=== PATIENT | male | born 1975 | race Caucasian/White ===

== ENCOUNTER 2018-07-07 16:37 | Emergency (ER) | payer MEDICAID ==
[2018-07-07] MEDS ORDERED: VENLAFAXINE XR 150 MG CAP PO ONE (17:09)
--- NOTE | 2018-07-07 17:11 | EDPHY ---
H & P Stated Complaint: SI, SA (jumped in front of 2 busses) ETOH w/d, off effexor for 2 months - Personal History Current Tetanus/Diphtheria Vaccine: Yes Current Tetanus Diphtheria and Acellular Pertussis (TDAP): Yes - Medical/Surgical History Hx Asthma: No Hx Chronic Respiratory Disease: No Hx Diabetes: No Hx Cardiac Disease: No Hx Renal Disease: No Hx Cirrhosis: No Hx Alcoholism: No Hx HIV/AIDS: No Hx Splenectomy or Spleen Trauma: No Other PMH: PMHx: anxiety/depression. PSHx: appendectomy, 3 pins in L tibia, skin graft L forearm - Social History Smoking Status: Current some day smoker Alcohol Use: Sober Drug Use: None Time Seen by Provider: 07/07/18 16:59 HPI/ROS: CHIEF COMPLAINT: Suicidal ideation HISTORY OF PRESENT ILLNESS: 42-year-old male with depression presents with suicidal ideation. He has been off Effexor and Invega for 3-4 weeks. Increasing thoughts of suicide over the past 2 weeks. Increasing delusions and thoughts of suicide. He jumped in front of a bus twice today in an attempt to kill himself. No alcohol or drug use today. REVIEW OF SYSTEMS: complete 10 point ROS reviewed and is negative except for the noted elements in the HPI (Vianey Salvador) - Physical Exam Exam: General Appearance: Alert, pleasant Eyes: Pupils equal and round, no conjunctival pallor or injection ENT, Mouth: Mucous membranes moist Neck: Normal inspection Respiratory: Lungs are clear to auscultation Cardiovascular: Regular rate and rhythm Gastrointestinal: Abdomen is soft and nontender Neurological: A&O, nonfocal, normal gait Skin: Warm and dry Extremities: Normal inspection Psychiatric: Mood and affect normal (Vianey Salvador S) Constitutional: Initial Vital Signs Temperature (C) 37.1 C 07/07/18 16:50 Heart Rate 107 H 07/07/18 16:50 Respiratory Rate 16 07/07/18 16:50 Blood Pressure 131/98 H 07/07/18 16:50 O2 Sat (%) 96 07/07/18 16:50 O2 Delivery Mode Room Air Allergies/Adverse Reactions: Penicillins Allergy (Verified 11/22/16 03:13) Home Medications: Medication Instructions Recorded Effexor Xr 187.5 AC 08/19/16 GABAPENTIN 300 mg TID 08/19/16 Adderall 20 mg (*) BID 10/16/16 Medical Decision Making ED Course/Re-evaluation: 6:49 a.m.- Patient stable overnight. I discussed the case with the mental health fishing game warden who is now met with the patient. He would like to place him at [facility] where the patient has been before and is his preference to go 2. The case will be signed out to the oncoming provider Dr. Escobedo. (Areli Avalos) This pt presents with SI on an M1 hold. Medically cleared for MH eval. 11pm: signed over to Dr. Avalos at shift change. Dispo pending. Pt calm and cooperative throughout my shift. (Vianey Salvador) Other Provider: Care assumed at 7:00 a.m., previous review of the emergency department visit since bipolar disorder. Arrived with alcohol intoxication. Plan for mental health evaluation this morning. 756: The patient will be transferred to [facility] for inpatient psychiatric hospital bed not available at this facility, in stable condition; accepting physician is Dr. Massey. EMTALA form completed. (Curt Escobedo) - Data Points Laboratory Results: Laboratory Results 07/07/18 17:00 07/07/18 17:00 Medications Given: Discontinued Medications Venlafaxine HCl (Effexor Xr) 300 mg PO EDNOW ONE Stop: 07/07/18 17:10 Last Admin: 07/07/18 17:32 Dose: 300 mg Departure - Departure Disposition: Other Psych, Not [facility] Clinical Impression: Alcohol intoxication, Bipolar 1 disorder Condition: Good Instructions: Alcohol Intoxication (ED), Suicide Prevention (ED) Referrals: [facility],. [Clinic] - As per Instructions
[2018-07-07 17:18] LABS: PLATELET COUNT 224 10^3/uL (150-400)
--- NOTE | 2018-07-08 08:29 | ASMTTLCEVL ---
TLC Evaluation - Basic Information Evaluation Start Date and 07/08/2018 06:00 AM Time Hospital Status Answers: M1 Hold 72-hr M1 Hold Start Date 07/07/2018 06:10 PM and Time Patient statement Notes: Aaliyah been off my Invega Sustenna since the end of May. I was supposed to go to either [facility] or [facility] for next injection on 06/12/18 when it was due, but I didnt follow up. My last injection was on . Aaliyah also not renewed my prescription of Effexor XR for the past 2-3 weeks. I relapsed with alcohol and marijuana in the past week and been feeling depressed and having suicidal thoughts. Yesterday, I tried twice to jump out in front of a bus to try to kill myself. I want help and agree to contract for safety in a hospital setting. 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 Pal was then placed on M1 hold by ED provider which noted: Sriram jumped in front of a bus twice today in an attempt to kill himself. BAL was .123 at 1700 hrs yesterday. UDS results were positive for marijuana. Pt was cooperative, alert and oriented X 4, demonstrated insight into relationship between his being off his prescription medications, feeling more depressed with suicidal ideation, and relapsing on alcohol and marijuana about a week ago after about a year of sustained abstinence. Diagnosis History Notes: Bipolar I disorder, alcohol use disorder, severe, with recent relapse a week ago, and marijuana use disorder, severe, with recent relapse a week ago. Prior suicide attempts Notes: Pt reported one prior suicide attempt in 2004 in which he reported taking an overdose of any pills I could get my hands on, and alcohol. He reported he ended up just vomiting a lot. Prior hospitalizations Notes: Pt reported a history of numerous prior psychiatric hospitalizations. His first hospitalization was in [place] in 2002. His second was in [facility] in 2008. He was hospitalized at [facility] in August 2016. He also reported hospitalizations at [facility] in [facility] and [facility] in [place], [place]. Treatment Responses Notes: Been off his prescribed meds for the past several weeks. History of violence Notes: Pt denied any history of aggression/violence and denied any past/recent/current homicidal ideation/intent/plans to harm anyone else. Therapist: None currently. Had been an open client with [facility] in the past. Psychiatrist: None currently. His most recent prescriber was in [place], name of prescriber unrecalled by pt. Medications (name, dosage, route, freq uency) Notes: Effexor XR 187.5 AC (has been off for past 2-3 weeks); Invega Sustenna (missed most recent scheduled injection on 06/12/18); Benadryl 50 mg po PRN for allergies. Allergies/Reaction Notes: Penicillin rash. Sleep Notes: Pt reported Im always tired. I usually drink a lot of caffeine in the mornings to try to stay awake. Appetite Notes: WNL. Medical/Surgical history Notes: Significant for appendectomy at age 19; had 3 pins in Left tibia at age 39; skin graft to left forearm at age 39 after pt had used an iron to remove a tattoo. Pt reported having minor skull fracture in May 2017 while intoxicated and in [place]. He fell backwards while intoxicated. Substance use history (frequency, intensity, his tory, duration) Notes: Pt reported having first tried alcohol at age 8. He reported a period of sustained abstinence of over a year up until about a week ago. He stated that his being on Effexor and attending [facility] helped him maintain sobriety. Over the past week, pt reported he has drank alcohol twice in the past week and drank 5 drinks of Vodka and Malt Liquor yesterday. He reported he first tried marijuana at age 21. He reported a period of sustained abstinence of over a year since May 2017 until a week ago. Since that time, he has been smoking it daily. He reported past experimental use of LSD in November 2016. BAL was .123 at 1700 hrs yesterday. UDS results were positive for marijuana. Family composition Notes: Pt reported his parent when pt was about 2 or 3 yo. His father lives in [place], [place]. His mother resides somewhere in [place]. He has one brother, age 42, and five younger sisters. He reported he does not have direct contact with any family of origin members other than via Facebook. Need for family Answers: No participation in patient's care Family psychiatric/substance abuse history Notes: Pt reported his father was alcoholic. Pt denied any family history of suicide attempts or completions. Developmental history Notes: Pt reported he was born and raised in [place], [place]. He endorsed having achieved normal childhood developmental milestones. He reported he had issues with ADD/ADHD, but was not prescribed Adderall until his adult years. Pt denied any childhood history of TBIs. LOC or concussions. Pt reported having minor skull fracture in May 2017 while intoxicated and in [place]. He fell backwards while intoxicated. Pt denied any childhood history of physical, emotional or sexual abuse/trauma. Abuse concerns Answers: None Marital status/children Notes: Pt is single, never , no dependents. Living situation Notes: Pt reported he resides in a fdc run by [employer]. Sexual history/orientation Notes: Not active. Heterosexual. Peer support/family strengths Notes: None identified by pt. Education level/history Notes: Pt reported he obtained an associates degree in aviation electronics in 1999 at the [email or web address]. Work history Notes: Pt served in the [employer] from 1993 2000. He was honorably discharged at the rank of E-4. 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 Pt denied any PTSD. For the past 2.5 years, pt reported he has been working as a stand-up [employer] and has traveled to [employer] in [place], [facility], [place], [place], [place], [place]. Notes: Pt served in the [employer] from 1993 2000. He was honorably discharged at the rank of E-4. 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 Pt denied any PTSD. Legal Notes: Pt denied any arrest/legal history. Yarsani/Spiritual Notes: Pt stated, Im Adventist. Leisure Notes: Pt stated lots of things. I enjoy art, cycling, performances, reading. Collateral Notes: Prior [facility] records. Patient's strengths Answers: Athletic (Please select at least TWO strengths): Funny/Using Humor Honest Insightful Intelligent Motivated for Treatment Willingness [facility] Evaluation - Mental Status Exam Appearance: Answers: Clean Unkempt Eye Contact: Answers: Good/Direct Mood: Answers: Depressed Sad Affect: Answers: Blunted Calm Congruent w/ Mood Flat Relaxed Sad Subdued Behavior: Answers: Appropriate Cooperative Speech: Answers: Relevant Logical Coherent Thought Process: Answers: Organized Oriented Alert Goal Oriented Intact Insight: Answers: Good Judgement: Answers: Fair Manic Signs/Symptoms Answers: Impulsivity Mood Swings Depression Answers: Crying Spells Signs/Symptoms: Difficulty Concentrating Diminished Interest Diminished Pleasure Flat Affect Psychomotor Retardation Sad Mood Withdrawn Hallucinations: Answers: None Current Stage of Change Answers: Relapse Pt reported to have Answers: Yes suicidal/self-injuring ideation/behavior? Pt reported to be making Answers: Yes suicidal/self-injuring threats? Pt reported to have Answers: No aggression/assault ideation/behavior? Pt reported to be making Answers: No aggression/assault threats? Pt exhibits inability to Answers: No care for self/grave disability? Ideation/behavior is Answers: No chronic? Patient has a specific Answers: Yes plan? Pt has access to means to Answers: Yes execute the plan? Ideation involves Answers: Yes serious/lethal intent? Ideation has Answers: No delusional/hallucinatory content? History of Answers: Yes suicidal/self-injuring ideation, behavior, or threats? History of Answers: No aggressive/assaultive ideation, behavior, or threats? History of serious Answers: No physical harm to self/others while in treatment setting? [facility] Evaluation - Suicide/Homicide Risk Suicide Risk Factors: Answers: < 20 or > 40 Years of Age Alcohol/Heavy Drug Use Anhedonia Bipolar Disorder Flat Affect Impulsivity Inadequate Social Support Intoxication Lack of Social Support Major Depression Prior Suicide Attempt(s) Single Homicide/violence risk Answers: None factors: Current Suicidal Answers: Yes Ideation? Current Suicide Ideation Past week having suicidal ideations. Frequency: Current Suicidal Ideation Answers: Yes in the Past 48 Hours? Current Suicidal Ideation Answers: No in the Past Month? Current Suicidal Answers: Yes Ideation, Worst Ever? Suicide Internal Answers: Absence of Psychosis Protective Factors: Suicide External Answers: None Protective Factors: Ranking of patient's Answers: Severe suicidal risk: Ranking of patient's Answers: Low homicidal risk: [facility] Evaluation - Wrap-up BDI Total Score: 28 BDI Question #2 Score: 1 BDI Question #9 Score: 2 BSS Total Score: 20 AXIS I Diagnosis (include DSM-V and ICD-10 codes), must also be entered in [employer], which is the source of truth. Notes: Bipolar I Disorder, current or most recent episode depressed, severe 296.53 (F31.4) Alcohol Use Disorder, severe 303.90 (F10.20) relapse in past week after sustained abstinence since May 2017 Cannabis Use Disorder, severe 304.30 (F12.20) relapse in past week after sustained abstinence since May 2017 In consultation with [facility] ED physician, Areli Avalos MD and on-call psychiatrist, Je Nichols MD, both concurred that pt appears to meet 27-65 criteria requiring psychiatric hospitalization as pt appears to be at risk of harm to self due to a mental illness condition. Pt was read the Patient Rights and Responsibilities Statement on 07/08/18 at 0630 hrs, original placed on chart, and was given photocopy of Rights. Pt signed the Patient Rights. Evaluation End Date and 07/08/2018 08:00 AM Time (HH:STANISLAW): Date Signed: 07/08/2018 08:28 AM Electronically Signed By:John Sandra
--- NOTE | 2018-07-08 08:33 | ASMTTCLDSP ---
TLC Discharge Disposition Disposition: Answers: Transfer Disposition Notes: Notes: Pt preferred to be transferred to [facility]. Transfer accepted under Dr. Winston Garcia. Discharge Concerns/Recommendations: Notes: In consultation with [facility] ED physician, Areli Avalos MD and on-call psychiatrist, Je Nichols MD, both concurred that pt appears to meet 27-65 criteria requiring psychiatric hospitalization as pt appears to be at risk of harm to self due to a mental illness condition. Pt was read the Patient Rights and Responsibilities Statement on 07/08/18 at 0630 hrs, original placed on chart, and was given photocopy of Rights. Pt signed the Patient Rights. Was patient given the Answers: Not applicable Inpatient Behavioral Health Prohibited Belongings List while in the ED? Type of Hold: Answers: M1/72-hour Hold Hold initiated by: Answers: ED Physician For Transfers, Accepting [facility] Facility: For Transfers, Accepting Winston Garcia MD Psychiatrist: For Transfers, Reason Pt preference. Patient is Being Transferred: Date Signed: 07/08/2018 08:32 AM Electronically Signed By:John Sandra
--- NOTE | 2018-07-08 09:52 | ASMTLCPROG ---
Notes Note: Notes: Received call from [facility] Intake Lead - Parul, inquiring if pre-cert had been initiated by [facility]. Pt has ASH 2 Medicaid, managed by [facility] at [phone]. Spoke with [facility] person named Tika who warm transferred me to [facility] and spoke with Jacek [phone]. He instructed to have clinicals faxed to [phone]. He would then notify [facility] of LOC being appropriate. Alexander at [facility] and Tika at [facility] confirmed that once [facility] has received approval notification by [facility], then [facility] is to contact [facility] with clinicals for authorization. Clinicals faxed successfully to [facility] at [phone]. Date Signed: 07/08/2018 09:50 AM Electronically Signed By:John Sandra
[2018-07-08 10:21] VITALS: BP 134/93
== END 2018-07-08 11:44 ==
PROC: GZ11ZZZ Psychological Tests, Personality and Behavioral (ICD-10-PCS; principal; 2018-07-07)
DX: F10.920 Alcohol use, unspecified with intoxication, uncomplicated (principal); F31.9 Bipolar disorder, unspecified
CPT/HCPCS: 80305; G0480